=== PATIENT | male | born 1975 | race Caucasian/White ===

== ENCOUNTER 2020-07-22 10:31 | Emergency (ER) | payer SELFPAY ==
--- NOTE | 2020-07-22 11:47 | ER Document Report ---
ED Medical Screen (RME) - General Chief Complaint: High Blood Pressure Stated Complaint: DIZZINESS,HEADACHE Time Seen by Provider: 07/22/20 11:39 - HPI Notes: 07/22/20 11:46 44-year-old male presents to ED for evaluation of increased dizziness and lightheadedness with headache over the last 3 days. Patient rates his blood pressure has been dramatically elevated. Patient has a history of hypertension however is not been taking medications for this. Patient notes that he has had a negative stress test in the past. Does not currently follow with anyone as he does not have a primary care provider. Notes nausea without vomiting abd blurred vision. Patient endorses no other complaints at this time. - Related Data Allergies/Adverse Reactions: Penicillins Allergy (Intermediate, Verified 07/22/20 11:38) Hives Home Medications: garlic, omeprazole Past Medical History - Social History Chew tobacco use (# tins/day): No Frequency of alcohol use: Occasional Drug Abuse: None Physical Exam - Vital signs Vitals: Temp Pulse Resp BP Pulse Ox 98.3 F 103 H 16 168/89 H 97 07/22/20 10:37 07/22/20 10:37 07/22/20 10:37 07/22/20 10:37 07/22/20 10:37 Course - Re-evaluation Re-evalutation: 07/22/20 11:46 General: No acute distress. Alert and oriented x3. Sitting comfortably in a stretcher. Skin: Intact without any jaundice, pallor, or erythema. Warm and dry. HEENT: Normocephalic, atraumatic. Pupils are equal round reactive to light and accommodation. Extraocular movements are intact. TMs without erythema or bulging. Canals are clear. Nares patent without any discharge. Teeth in good condition. Pharynx without erythema, edema, or exudates. No tonsillar enlargement. Uvula is midline. Airway is patent. Neck: Supple with no lymphadenopathy. Full range of motion. Heart: Regular rate and rhythm. S1,S2. No murmurs, rubs, or gallops. Lungs: Clear to ausculation bilaterally. No wheezes, rhonchi, rales. Equal chest expansion. No retractions. Abdomen: Soft, nontender to palpation, nondistended. Positive bowel sounds in all 4 quadrants. No hepatosplenomegaly. No masses. No CVA tenderness bilaterally. Neuro: GCS 15. Moving all extremities without discomfort.. Finger to nose is negative. Pronator drift is negative. Psych: Mood and affect appropriate. - Vital Signs Vital signs: Temp Pulse Resp BP Pulse Ox 98.3 F 103 H 16 168/89 H 97 07/22/20 10:37 07/22/20 10:37 07/22/20 10:37 07/22/20 10:37 07/22/20 10:37
[2020-07-22 12:20] LABS: ABSOLUTE BASOPHILS # (AUTO) 0.1 10^3/uL (0.0-0.2); ABSOLUTE EOSINOPHILS # (AUTO) 0.2 10^3/uL (0.0-0.6); ABSOLUTE LYMPHOCYTES (AUTO) 2.5 10^3/uL (0.5-4.7); ABSOLUTE MONOCYTES (AUTO) 0.8 10^3/uL (0.1-1.4); ABSOLUTE NEUT (AUTO) 5.8 10^3/uL (1.7-8.2); BASOPHILS % (AUTO) 0.9 % (0-2); EOSINOPHILS % (AUTO) 1.7 % (0-6); HEMATOCRIT 44.8 % (37.9-51.0); HEMOGLOBIN 15.8 g/dL (13.5-17.0); MEAN CORPUSCULAR HEMOGLOBIN 30.8 pg (27.0-33.4); MEAN CORPUSCULAR HGB CONC 35.2 g/dL (32.0-36.0); MEAN CORPUSCULAR VOLUME 87 fl (80-97); MONOCYTES % (AUTO) 8.4 % (3-13); PLATELET COUNT 292 10^3/uL (150-450); RED BLOOD COUNT 5.13 10^6/uL (4.35-5.55); RED CELL DISTRIBUTION WIDTH 12.8 % (11.5-14.0); TOTAL CELLS COUNTED % (AUTO) 100 %; WHITE BLOOD COUNT 9.3 10^3/uL (4.0-10.5)
[2020-07-22 12:46] LABS: ALBUMIN 4.1 g/dL (3.5-5.0); ALKALINE PHOSPHATASE 67 U/L (38-126); ANION GAP 7 (5-19); ASPARTATE AMINO TRANSFERASE 26 U/L (17-59); BILIRUBIN,DIRECT 0.1 mg/dL (0.0-0.4); BILIRUBIN,TOTAL 0.6 mg/dL (0.2-1.3); BLOOD UREA NITROGEN 12 mg/dL (7-20); CALCIUM 9.3 mg/dL (8.4-10.2); CARBON DIOXIDE 28 mmol/L (22-30); CHLORIDE 105 mmol/L (98-107); CREATINE KINASE 111 U/L (55-170); GLUCOSE 91 mg/dL (75-110); POTASSIUM 4.3 mmol/L (3.6-5.0); TOTAL PROTEIN 7.5 g/dL (6.3-8.2)
--- NOTE | 2020-07-22 12:49 | RADIOLOGY REPORT (SQ) ---
EXAM DESCRIPTION: CHEST SINGLE VIEW IMAGES COMPLETED DATE/TIME: 07/22/2020 12:32 pm REASON FOR STUDY: chest pain COMPARISON: None. EXAM PARAMETERS: NUMBER OF VIEWS: One view. TECHNIQUE: Single frontal radiographic view of the chest acquired. RADIATION DOSE: NA LIMITATIONS: None. FINDINGS: LUNGS AND PLEURA: No opacities, masses or pneumothorax. No pleural effusion. MEDIASTINUM AND HILAR STRUCTURES: No masses. Contour normal. HEART AND VASCULAR STRUCTURES: Heart normal in size. Normal vasculature. BONES: No acute findings. HARDWARE: None in the chest. OTHER: No other significant finding. IMPRESSION: NO ACUTE RADIOGRAPHIC FINDING IN THE CHEST. TECHNICAL DOCUMENTATION: JOB ID: [id number] [employer]- All Rights Reserved Reading location - IP/workstation name: [email or web address]
[2020-07-22 13:01] LABS: CREATINE KINASE MB 1.15 ng/mL (<4.55)
[2020-07-22 13:03] LABS: TROPONIN I < 0.012 ng/mL
--- NOTE | 2020-07-22 16:41 | ER Document Report ---
ED General - General Chief Complaint: High Blood Pressure Stated Complaint: DIZZINESS,HEADACHE Time Seen by Provider: 07/22/20 11:39 - HPI Notes: Patient is a 44-year-old male who presents emergency department for evaluation of dizziness, intermittent blurred vision, elevated blood pressure. He has had about this problem for at least the last 6 months. He was admitted to the hospital in the past for chest pain, had a negative stress test. He was sent home on antihypertensives, but he never filled the prescriptions. When asked, he states that he did not fill them because he was afraid of the side effects. He states that he was told about these by other friends. He did not take the medications at any point. He denies any exertional chest pain. He states that he has intermittent blurry vision but he cannot really tell anything about what brings it on. He describes dizziness, but really states is more of a light headedness. He denies any vertiginous symptoms. No difficulty speaking or swallowing. He is moving his arms and legs without difficulty. - Related Data Allergies/Adverse Reactions: Penicillins Allergy (Intermediate, Verified 07/22/20 11:38) Hives Home Medications: garlic, omeprazole Past Medical History - General Information source: Patient - Social History Smoking Status: Current Every Day Smoker Chew tobacco use (# tins/day): No Frequency of alcohol use: Occasional Drug Abuse: None Family History: CAD, CVA Patient has homicidal ideation: No - Past Medical History Cardiac Medical History: Reports: Hx Hypertension GI Medical History: Reports: Hx Gastroesophageal Reflux Disease Review of Systems - Review of Systems Constitutional: No symptoms reported EENT: See HPI Cardiovascular: No symptoms reported Respiratory: No symptoms reported Gastrointestinal: No symptoms reported Genitourinary: No symptoms reported Musculoskeletal: No symptoms reported Skin: No symptoms reported Neurological/Psychological: See HPI Physical Exam - Vital signs Vitals: Temp Pulse Resp BP Pulse Ox 98.3 F 103 H 16 168/89 H 97 07/22/20 10:37 07/22/20 10:37 07/22/20 10:37 07/22/20 10:37 07/22/20 10:37 - Notes Notes: Vital signs reviewed, please refer to chart. Head is normocephalic, atraumatic. Pupils equal round, reactive to light. Neck is supple without meningismus. Heart is regular rate and rhythm. Lungs are clear to auscultation bilaterally. Abdomen is soft, nontender, normoactive bowel sounds throughout. Extremities without cyanosis, clubbing. Posterior calves are nontender. Peripheral pulses are equal. Skin is warm and dry. Patient is awake, alert, oriented x3. Cranial nerves II - XII are grossly intact without focal neurological deficits. Strength is plus 5 out of 5 bilateral upper and lower extremities. Sensation is intact. Reflexes symmetrical. Intact [id number], rapid alternating movements, [id number]. Course - Re-evaluation Re-evalutation: 07/22/20 16:43 Patient presents emergency department for evaluation. He has had intermittent dizziness and blurred vision. His laboratory investigations and EKG, imaging was ordered through triage. No significant abnormality was noted. He has a normal neurological exam here. I explained to him that risks associated with untreated high blood pressure. He was counseled extensively on quitting smoking, lifestyle changes to reduce his risks of heart attack and stroke, renal disease, and other medical issues. He voiced understanding to all of this. I explained to him in great detail that he needs to obtain a primary care provider, keep an eye on his blood pressure, and evaluate him for other risks. He voiced understanding to this. I will write him a prescription for hydroc hlorothiazide. He is to return to the emergency department worsening or new concerning symptoms of any sort. - Vital Signs Vital signs: Temp Pulse Resp BP Pulse Ox 98.3 F 94 16 164/97 H 97 07/22/20 10:37 07/22/20 14:54 07/22/20 14:54 07/22/20 14:54 07/22/20 14:54 - Laboratory Results Result Diagrams: 07/22/20 12:08 07/22/20 12:08 Critical Laboratory Results Reviewed: No Critical Results - Radiology Results Radiology Results Interpreted: 07/22/20 16:44 Chest X-Ray 07/22/20 11:45 IMPRESSION: NO ACUTE RADIOGRAPHIC FINDING IN THE CHEST. Critical Radiology Results Reviewed: No Critical Results - EKG Interpretation by Me Additional EKG results interpreted by me: 07/22/20 16:44 Sinus mechanism with a rate of 83 bpm. Normal axis intervals. No acute ST changes concerning for ischemia or infarction. Discharge - Discharge Clinical Impression: Dizziness Hypertension Qualifiers: Hypertension type: unspecified Qualified Code(s): I10 - Essential (primary) hypertension Condition: Stable Disposition: HOME, SELF-CARE Additional Instructions: Please quit smoking. Take medication as directed for high blood pressure. You need to establish with a primary care provider as soon as possible. [facility], please contact other primary care providers in the area for follow-up. Return to the emergency department if you develop worsening or new concerning symptoms of any sort. Prescriptions: Hydrochlorothiazide [Hydrodiuril 25 mg Tablet] 25 mg PO QAM #30 tablet Forms: Smoking Cessation Education
[2020-07-22 17:03] VITALS: BP 149/94
--- NOTE | 2020-07-22 21:29 | EKG REPORT ---
SEVERITY:- NORMAL ECG - SINUS RHYTHM : Confirmed by: Luz Marina Badillo MD 22-Jul-2020 21:28:52
== END 2020-07-22 17:03 | disposition home or self-care (01) ==
LOC: ER 10:31
DX: I10 Essential (primary) hypertension (principal); T46.5X6A Underdosing of other antihypertensive drugs, initial encounter; Z91.128 Patient's intentional underdosing of medication regimen for other reason; Z91.14 Patient's other noncompliance with medication regimen; R42 Dizziness and giddiness; H53.8 Other visual disturbances; F17.200 Nicotine dependence, unspecified, uncomplicated; K21.9 Gastro-esophageal reflux disease without esophagitis; Z79.899 Other long term (current) drug therapy; Z88.0 Allergy status to penicillin; Z82.49 Family history of ischemic heart disease and other diseases of the circulatory system
CPT/HCPCS: 36415; 71045; 80053; 82550; 82553; 84484; 85025; 93005; 93010; 99285